=== PATIENT | female | born 1945 | race Native Hawaiian/Other Pacific Islander ===

== ENCOUNTER 2023-11-19 22:32 | Emergency (ER) | payer MEDICARE, OTHER ==
--- NOTE | 2023-11-19 23:03 | ED Physician Documentation ---
History of Present Illness - Stated complaint Stated Complaint: DIFFICULTY BREATHNG/RT SIDE PX - Chief complaint Chief Complaint: Resp - History obtained from History obtained from: Patient, Family - Additonal information Additional information: The patient comes to the emergency department with her for chief complaint of sudden onset of right-sided chest pain tonight. The patient has had a cough for the last few days with some mild nasal congestion. She states that she has not had any fevers or chills and is otherwise feeling fairly well. She states that her to take a deep breath and her became concerned that the pain may Becoming from her heart. The patient states that as long she does not deep breathe, she does not really feel any pain. No air hunger. She has a history of hypertension and is on 3 different medications for this but otherwise, is fairly healthy. No other complaints at this time. PD PAST MEDICAL HISTORY - Past Medical History Cardiovascular: Hypertension, High cholesterol Endocrine/Autoimmune: Type 2 diabetes - Past Surgical History General: Cholecystectomy - Present Medications Home Medications: Ambulatory Orders Medication Instructions Recorded Confirmed Amlodipine Besylate [Norvasc] 10 mg PO DAILY 11/19/23 11/19/23 Metformin HCl [Metformin ER 500 mg PO BID 11/19/23 11/19/23 Osmotic] Rosuvastatin Calcium [Crestor] 5 mg PO DAILY 11/19/23 11/19/23 atenoloL [Tenormin] 25 mg PO BID 11/19/23 11/19/23 lisinopriL [Lisinopril] 40 mg PO DAILY 11/19/23 11/19/23 - Allergies Allergies/Adverse Reactions: Allergies Allergy/AdvReac Type Severity Reaction Status Date / Time atorvastatin [From Lipitor] Allergy Unknown Verified 11/19/23 22:40 - Social History Does the pt smoke?: No Smoking Status: Former smoker Does the pt drink ETOH?: No Does the pt have substance abuse?: No PD ED PE NORMAL - Vitals Vital signs reviewed: Yes - General General: Alert and oriented X 3, No acute distress, Well developed/nourished - HEENT HEENT: Atraumatic, PERRL, EOMI, Moist mucous membranes - Neck Neck: Supple, no meningeal sign - Cardiac Cardiac: RRR, No murmur - Respiratory Respiratory: No respiratory distress, Clear bilaterally - Abdomen Abdomen: Soft, Non tender, Non distended - Derm Derm: Normal color, Warm and dry, No rash - Extremities Extremities: No deformity, No edema - Neuro Neuro: Alert and oriented X 3 - Psych Psych: Normal mood, Normal affect Results - Vitals Vitals: Vital Signs - 24 hr 11/19/23 22:40 Temperature 36.5 C Heart Rate 95 Respiratory 20 Rate Blood Pressure 161/69 H O2 Saturation 96 Oxygen O2 Source Room air - EKG (time done) 2313 EKG releavant findings:: EKG personally interpreted by author of this note. Relevant findings are: Rate: Rate (enter#) (81) Rhythm: NSR [place]: Normal Intervals: Normal MI QRS: Normal Ischemia: Normal ST segments Compare to prior EKG: Old EKG unavailable Computer interpretation: Agree with computer - Rads (name of study) chest XR Relevant Findings:: Final report received, See rad report (neg) PD Medical Decision Making - ED course Complexity details: reviewed results, re-evaluated patient, considered differential, d/w patient, d/w family ED course: The patient declined symptomatic treatment in the ED. She was worked up with EKG, chest x-ray, and respiratory PCR panel. Her blood pressure here was in the 150s to 160s over 60s to 70s systolic.The patient's chest x-ray and EKG were negative. Viral panel is pending at this time. I felt the patient is stable for discharge home. I have discussed with her and her that she most likely has one of the many viruses that are going around and causing upper respiratory symptoms, and she is most likely developed chest wall pain from all the coughing she has been doing. We have discussed symptomatic management at home as well as usual indications for return. Departure - Departure Disposition: 01 Home, Self Care Clinical Impression: Viral upper respiratory infection, Acute chest wall pain Cough Qualifiers: Cough type: acute Qualified Code(s): R05.1 - Acute cough Condition: Stable Instructions: ED Viral Syndrome, ED Chest Pain Costochondritis Comments: Your chest x-ray and EKG look great. Your chest pain is not at all typical of pain that would be coming from the heart, which is on the left side. Additionally, given that the pain is worse when you take deep breaths, it is overwhelmingly most likely that the pain is coming from the structures of the wall of your chest itself, most likely from either the muscles that you use for coughing or the tendinous connections of those muscles to the ribs. In general, the sort of inflammation will down on its own as your cough goes away. You may take ibuprofen and Tylenol as needed to help with the discomfort. You may use ice packs and heat packs to help, also. A viral panel has been obtained and is pending at this time. This tests for a small fraction of the upper respiratory viruses that go around and because cough and other symptoms. If any of these come back positive, we will call you at home and let you know. Otherwise, this illness is overwhelmingly likely to be viral and will be expected to pass on its own in several days to a week or 2. Please follow-up with your primary doctor as needed. Forms: PCP List
--- NOTE | 2023-11-19 23:41 | XRAY Report ---
PROCEDURE: Chest 1V INDICATIONS: chest pain, cough TECHNIQUE: One view of the chest was acquired. COMPARISON: None. FINDINGS: Surgical changes and devices: None. Lungs and pleura: No pleural effusions or pneumothorax. Lungs demonstrate diffusely coarse intersti tial markings but no dense consolidations. Mediastinum: Mediastinal contours appear normal. Heart size is normal. Bones and chest wall: No suspicious bony lesions. Overlying soft tissues appear unremarkable. IMPRESSION: Coarse interstitial markings may be physiologic for the patient or indicate viral pneumonitis. No significant pleural effusion or pneumothorax. Reviewed by: Kyra Colin MD on 11/19/2023 11:39 PM PST Approved by: Kyra Colin MD on 11/19/2023 11:39 PM PST Station ID: [id number]
[2023-11-19 23:43] VITALS: BP 116/65; O2SAT 97
[2023-11-19 23:57] LABS: CORONAVIRUS 229E-RESP PCR NOT DETECTED; CORONAVIRUS HKU1-RESP PCR NOT DETECTED; CORONAVIRUS NL63-RESP PCR NOT DETECTED; CORONAVIRUS OC43-RESP PCR NOT DETECTED; HUMAN METAPNEUMOVIRUS NOT DETECTED; INFLUENZA A- RESP PCR PANEL NOT DETECTED; RHINOVIRUS/ENTEROVIRUS NOT DETECTED
[2023-11-19 23:58] LABS: B. PARAPERTUSSIS- RESP PCR PAN NOT DETECTED; B. PERTUSSIS- RESP PCR PANEL NOT DETECTED; C. PNEUMONIAE- RESP PCR PANEL NOT DETECTED; INFLUENZA B - RESP PCR PANEL NOT DETECTED; M. PNEUMONIAE- RESP PCR PANEL NOT DETECTED; PARAINFLUENZA VIRUS 1 NOT DETECTED; PARAINFLUENZA VIRUS 2 NOT DETECTED; PARAINFLUENZA VIRUS 3 NOT DETECTED; PARAINFLUENZA VIRUS 4 NOT DETECTED; RSV- RESP PCR PANEL NOT DETECTED
[2023-11-20] LABS: SARS-CoV-2 -RESP PCR PANEL DETECTED
== END 2023-11-19 23:36 | disposition home or self-care (01) ==
LOC: ED 22:32
DX: J06.9 Acute upper respiratory infection, unspecified (principal); R07.89 Other chest pain; I10 Essential (primary) hypertension; E11.9 Type 2 diabetes mellitus without complications; Z79.84 Long term (current) use of oral hypoglycemic drugs; Z87.891 Personal history of nicotine dependence; Z11.52 Encounter for screening for COVID-19
CPT/HCPCS: 87633; 93005; 99283; 99284